=== PATIENT | female | born 1975 | race Two or more races ===

== ENCOUNTER 2016-12-20 05:32 | Day surgery (SDC) | payer OTHER ==
[~2016-12-20] VITALS: Ht 157.5 cm; Wt 81.2 kg
[2016-12-20 06:44] VITALS: Ht 157.5 cm; Wt 81.2 kg
[2016-12-20] MEDS ORDERED: OMEPRAZOLE (06:51)
[2016-12-20] MEDS ORDERED: SYNTHROID (06:51)
[2016-12-20] MEDS ORDERED: CHOLESTEROL (06:51)
[2016-12-20 07:17] VITALS: BP 121/57; PULSE 69; RESP 14
[2016-12-20] MEDS ORDERED: FENTAnyl 50 MCG/ML VIAL ONE (07:48)
[2016-12-20] MEDS ORDERED: MIDAZOLAM 1 MG/ML 2 ML INJ ONE (07:48)
[2016-12-20 08:05] VITALS: BP 117/72; PULSE 76; RESP 14
--- NOTE | 2016-12-30 12:02 | GILP ---
DATE OF PROCEDURE: PROCEDURE PERFORMED: Esophagogastroduodenoscopy and biopsies. SURGEON: Dr. Kya Zuniag. PREOPERATIVE DIAGNOSES: 1. Abdominal pain. 2. Chronic heartburn. POSTOPERATIVE DIAGNOSES: 1. Gastroesophageal reflux disease. 2. Gastritis with erosions. 3. Gastric mucosal biopsies were taken for Helicobacter pylori test. INDICATION: Ms. Destinee Alexander is a 41-year-old female patient who had upper abdominal pain and chronic heartburn, not responding to therapy. Patient was scheduled for endoscopic examination for further evaluation. The procedure and possible complications are well explained to patient. The patient understood and consented to the procedure. DESCRIPTION OF PROCEDURE: Under the influence of fentanyl and Versed, the gastroscope was carefully introduced into the esophagus. Under direct vision, it was advanced to the stomach, into the pylorus, into the duodenal bulb and descending duodenum. FINDINGS: Esophagus: Patient had gastroesophageal reflux disease. Stomach: Patient had gastritis and erosions. Gastric mucosal biopsies were taken for H pylori test. Duodenum was normal. The patient tolerated the procedure very well. There were no complications from the procedure. Again, after the procedure she was awake with stable vital signs and she was discharged in the care of her family IMPRESSION: 1. Gastroesophageal reflux disease. 2. Gastritis with erosions. 3. Gastric mucosal biopsies were taken for Helicobacter pylori test. PLAN: 1. Continue omeprazole. 2. Zantac 300 mgs p.o. at bedtime. 3. Await H pylori test report. Dictated By: MD ELISHA Null/ba/sharla /Document#: [id number] CC: Kya Zuniga MD;*[facility]
== END 2016-12-20 15:35 | disposition home or self-care (01) ==
LOC: GIL 05:32
PROVIDERS: ATTEND Internal Medicine Gastroenterology
DX: K21.9 Gastro-esophageal reflux disease without esophagitis (principal); K29.60 Other gastritis without bleeding; E03.9 Hypothyroidism, unspecified
CPT/HCPCS: 43239; 84703; 87081; J2250; J3010; Z7610